=== PATIENT | female | born 1985 | race Two or more races ===

== ENCOUNTER → 2018-08-03 | Outpatient (REF) | payer OTHER | LOC: M SFHCLERA 10:31 | PROVIDERS: ATTEND Physician Assistant | DX: R10.31 Right lower quadrant pain (principal) ==

== ENCOUNTER → 2018-08-03 | Outpatient (CLI) | payer OTHER ==
--- NOTE | 2018-08-03 13:16 | REP ---
Clinical: Right lower quadrant pelvic pain . Technique: Transabdominal pelvic ultrasound followed by transvaginal examination for better evaluation of the endometrium and adnexa with color Doppler evaluation of the ovaries. Findings: Bladder is unremarkable and measures 8.1 x 3.0 x 2.9 cm . Normal anteverted uterus measures 9.0 x 4.9 x 6.7 cm . The endometrial complex measures 12.0 mm thickness. No discrete uterine or endometrial abnormalities are appreciated. Left ovary is normal in appearance and vascularity without torsion and measures 2.7 x 4.2 x 2.5 cm; RI 0.51. Right ovary is enlarged measuring 4.6 x 3.8 x 4.7 cm with suggestions for hemorrhagic cyst. Evaluation is somewhat limited due to technical factors and poor transvaginal images of the right han pelvis. Impression: 1. Normal uterus and left ovary. 2. Enlarged right ovary with suspected hemorrhagic cyst. While less likely, right ovarian torsion cannot definitively be excluded. Consider follow-up examination in 4-6 weeks to evaluate for resolution. Reevaluation may be obtained sooner if the patient remains acutely symptomatic. Electronically Signed by Moreno Kilpatrick MD 08/03/2018 01:06 P
== END ==
LOC: M LRY 11:05
PROVIDERS: ATTEND Physician Assistant
DX: N83.8 Other noninflammatory disorders of ovary, fallopian tube and broad ligament (principal)
CPT/HCPCS: 76830; 76856; 81002; 81025; 87086; 93976; G0463